=== PATIENT | female | born 1990 | race Caucasian/White ===

== ENCOUNTER 2019-12-10 21:15 | Emergency (ER) | payer SELFPAY ==
[~2019-12-10] VITALS: Ht 170.1 cm; Wt 81.6 kg
[2019-12-10 22:54] LABS: BASO # 0.1 10*3/uL (0.0-0.1); BASO % 0.5 % (0.0-1.0); EOS # 0.3 10*3/uL (0.0-0.4); HEMATOCRIT 34.3 % (37.0-47.0); LYMPH # 1.5 10*3/uL (1.3-4.4); LYMPH % 11.9 % (27.0-41.0); MEAN CELL VOLUME 78.3 fl (81.0-99.0); MEAN CORPUSCULAR HGB 24.9 pg (27.0-31.0); MEAN CORPUSCULAR HGB CONC 31.8 g/dl (33.0-37.0); MEAN PLATELET VOLUME 9.8 fl (9.6-12.3); MONO # 0.8 10*3/uL (0.1-1.0); MONO % 6.7 % (3.0-9.0); NEUT # 9.8 10*3/uL (2.3-7.9); NEUT % 78.4 % (47.0-73.0); PLATELET COUNT AUTOMATED 272 10*3/uL (130-400); RED BLOOD COUNT 4.38 10*6/uL (4.10-5.10); RED CELL DISTRI WIDTH 15.7 % (0-14.5); WHITE BLOOD COUNT 12.5 10*3/uL (4.8-10.8)
[2019-12-10 23:03] LABS: BILIRUBIN 1+ (NEGATIVE); BLOOD NEGATIVE (NEGATIVE); CLARITY CLEAR (CLEAR); COLOR YELLOW (YELLOW); GLUCOSE NEGATIVE (NEGATIVE); KETONE NEGATIVE (NEGATIVE); LEUKO ESTERASE NEGATIVE (NEGATIVE); NITRITE NEGATIVE (NEGATIVE); RBC 0-2 rbc/hpf (0-2); UROBILINOGEN 0.2 E.U./dl (0.2-1.0); WBC 0-2 wbc/hpf (0-5)
[2019-12-10 23:04] LABS: BACTERIA TRACE
[2019-12-10 23:09] LABS: ALBUMIN 3.5 gm/dl (3.1-4.5); ALKALINE PHOSPHATASE 49 U/L (45-117); BUN 10 mg/dl (7-24); CHLORIDE 113 mmol/L (98-107); CREATININE 0.79 mg/dL (0.55-1.02); LIPASE 148 U/L (73-393); POTASSIUM 3.8 mmol/L (3.5-5.1); SGOT/AST 17 IU/L (3-35); SGPT/ALT 18 U/L (12-78); SODIUM 139 mmol/L (136-145); TOTAL PROTEIN 6.6 gm/dL (6.4-8.2)
[2019-12-10 23:23] LABS: B-hCG (QUALITATIVE) BORDERLINE (NEGATIVE)
== END 2019-12-11 04:00 | disposition short-term general hospital (02) ==
LOC: ED 21:15
PROVIDERS: Emergency Medicine
DX: S06.0X9A Concussion with loss of consciousness of unspecified duration, initial encounter (principal); S27.329A Contusion of lung, unspecified, initial encounter; V80.010A Animal-rider injured by fall from or being thrown from horse in noncollision accident, initial encounter; Y93.89 Activity, other specified; Y92.89 Other specified places as the place of occurrence of the external cause; Y99.8 Other external cause status

== ENCOUNTER 2020-04-03 23:09 | Inpatient (IN) | payer SELFPAY ==
[~2020-04-03] VITALS: Ht 170.1 cm; Wt 79.0 kg
[2020-04-03 23:21] VITALS: BP 143/102
[2020-04-03 23:41] LABS: BASO # 0.1 10*3/uL (0.0-0.1); BASO % 0.9 % (0.0-1.0); EOS # 0.3 10*3/uL (0.0-0.4); HEMATOCRIT 38.6 % (37.0-47.0); LYMPH # 2.7 10*3/uL (1.3-4.4); LYMPH % 28.9 % (27.0-41.0); MEAN CELL VOLUME 80.1 fl (81.0-99.0); MEAN CORPUSCULAR HGB 23.9 pg (27.0-31.0); MEAN CORPUSCULAR HGB CONC 29.8 g/dl (33.0-37.0); MEAN PLATELET VOLUME 9.6 fl (9.6-12.3); MONO # 0.4 10*3/uL (0.1-1.0); MONO % 4.7 % (3.0-9.0); NEUT # 5.8 10*3/uL (2.3-7.9); NEUT % 62.3 % (47.0-73.0); PLATELET COUNT AUTOMATED 271 10*3/uL (130-400); RED BLOOD COUNT 4.82 10*6/uL (4.10-5.10); RED CELL DISTRI WIDTH 15.6 % (0-14.5); WHITE BLOOD COUNT 9.3 10*3/uL (4.8-10.8)
[2020-04-03 23:52] LABS: ACT PARTIAL THROMBO TIME 27.7 SECONDS (20.0-32.1)
[2020-04-03 23:59] LABS: ALBUMIN 3.7 gm/dl (3.1-4.5); ALKALINE PHOSPHATASE 53 U/L (45-117); BUN 14 mg/dl (7-24); CHLORIDE 115 mmol/L (98-107); POTASSIUM 3.5 mmol/L (3.5-5.1); SGOT/AST 24 IU/L (3-35); SGPT/ALT 22 U/L (12-78); SODIUM 143 mmol/L (136-145); TOTAL PROTEIN 7.1 gm/dL (6.4-8.2)
[2020-04-04 00:02] VITALS: BP 127/89
[2020-04-04 00:06] LABS: ACETAMINOPHEN (TYLENOL) < 5.0 ug/ml (10-30); TROPONIN I < 0.015 ng/ml (<0.045)
[2020-04-04 00:35] LABS: BILIRUBIN NEGATIVE; BLOOD NEGATIVE (NEGATIVE); CLARITY CLEAR (CLEAR); COLOR YELLOW (YELLOW); GLUCOSE NEGATIVE; KETONE NEGATIVE; LEUKO ESTERASE NEGATIVE (NEGATIVE); NITRITE NEGATIVE (NEGATIVE); SPECIFIC GRAVITY < 1.005 (1.001-1.030); UROBILINOGEN 0.2 E.U./dl (0.0-1.0)
[2020-04-04 00:40] LABS: BACTERIA TRACE; RBC 0-2 rbc/hpf (0-2); WBC 0-2 wbc/hpf (0-5)
[2020-04-04 00:43] LABS: URINE AMPHETAMINES < 1000 (1000ng/ml); URINE BARBITURATES < 200 (200ng/ml); URINE BENZODIAZEPINES < 200 (200ng/ml); URINE CANNABINOIDS (THC) < 50 (50ng/ml); URINE COCAINE < 300 (300ng/ml); URINE METHADONE < 300 (300ng/ml); URINE OPIATES < 300 (300ng/ml)
[2020-04-04 00:45] LABS: URINE PHENCYCLIDINE < 25 (25ng/ml)
[2020-04-04 01:05] VITALS: BP 134/79
[2020-04-04 02:17] VITALS: BP 119/78
[2020-04-04 03:30] VITALS: BP 129/91
--- NOTE | 2020-04-04 03:30 | NUR ---
A 29, admitted to [facility], under the services of MARIA VICTORIA Youssef DO with a diagnosis of ENCEPHALOPATHY ALCOHOL INTOXICATION. Chief complaint is ALCOHOL INTOXICATION. Patient arrived via stretcher from ER. Monitor applied. Initial assessment completed. Vital signs taken and recorded. MARIA VICTORIA YOUSSEF DO notified of admission to the unit. Orders received. See assessment for past medical history, medications and allergies. Patient and/or family oriented to unit. [facility] visitation policy reviewed. Clothing/patient valuable form completed. DEB JO
--- NOTE | 2020-04-04 03:30 | NUR ---
A 29 YEAR OLD FEMALE PATIENT, admitted to [facility]U, under the services of MARIA VICTORIA Youssef DO with a diagnosis of ENCEPHALOPATHY,ALCOHOL INTOXIFICATION Chief complaint is WAS OUT DRINKING WITH FRIENDS, PASSED OUT BAR, BROUGHT INTO ER UNRESPONSIVE. Patient arrived via CART WITH RN from ER. Monitor applied. Initial assessment completed. Vital signs taken and recorded. See assessment for past medical history, medications and allergies. Patient and/or family oriented to unit. [facility]. Clothing/patient valuable form completed. ABDULKADIR CASILLAS
--- NOTE | 2020-04-04 07:04 | NUR ---
Shift chart check completed. PATIENT SLEEPING
[2020-04-04 08:00] VITALS: BP 142/60
--- NOTE | 2020-04-04 08:20 | NUR ---
AM ASSESSMENT COMPLETED. PER PT SHE DOESN'T USUALLY DRINK DAILY BUT HAS THIS LAST WEEK.. PER PT SHE FEELS DIFFERENT THAN SHE USUALLY DOES AND HAS NEVER REACTED LIKE THIS BEFORE..SHE IS NOT INTERESTED IN [facility] [place]
--- NOTE | 2020-04-04 09:10 | NUR ---
MOTRIN GIVEN FOR C/O ENDOMETREOSIS PAIN AFTER EATING AND TALKING WITH VIA PHONE
--- NOTE | 2020-04-04 09:48 | NUR ---
SLEEPING AFTER MEDICATED
--- NOTE | 2020-04-04 10:22 | NUR ---
DR GARBER HERE TO SEE PATIENT
--- NOTE | 2020-04-04 11:20 | NUR ---
Discharge instructions reviewed with patient/family. Patient receptive and verbalizes understanding. Follow-up care arranged. Written instructions given to patient/family. Hep Lock discontinued. Site asymptomatic. Pressure applied. Sterile dressing applied. AMBULATED OUT JOSHUA CONLEY
== END 2020-04-04 11:45 | disposition home or self-care (01) | DRG 386 ==
LOC: ED 23:09 → EDHOLD 04-04 02:32 → ICCU 04-04 02:32
PROVIDERS: Emergency Medicine Emergency Medical Services; ADMIT Internal Medicine; ATTEND Internal Medicine
DX: K51.919 Ulcerative colitis, unspecified with unspecified complications (principal); E44.0 Moderate protein-calorie malnutrition; E87.2 Acidosis; R06.89 Other abnormalities of breathing; E87.8 Other disorders of electrolyte and fluid balance, not elsewhere classified; F10.129 Alcohol abuse with intoxication, unspecified; Z68.27 Body mass index [BMI] 27.0-27.9, adult; Z90.49 Acquired absence of other specified parts of digestive tract; Z82.49 Family history of ischemic heart disease and other diseases of the circulatory system; Z79.899 Other long term (current) drug therapy